=== PATIENT | male | born 1985 | race African-American/Black ===

== ENCOUNTER 2018-02-19 00:08 | Emergency (ER) | payer MEDICAID ==
[~2018-02-19] VITALS: Ht 180.3 cm; Wt 122.5 kg
[2018-02-19 00:16] VITALS: BP 112/99
[2018-02-19] MEDS ORDERED: ALBUTEROL SULF8.5 GM INH (00:37)
[2018-02-19] MEDS ORDERED: PREDNISONE20 MG ORAL (00:37)
--- NOTE | 2018-02-19 00:37 | Emergency Room Report ---
History of Present Illness General Chief Complaint: Upper Respiratory Illness Source: Patient Present Illness HPI Is a 32-year-old male with no past medical history. He presents with chief complaint of cough and congestion. Onset for last 2 days. 2 days ago he had a fever and chills. Since then he has congestion and coughing. Coughing is occasionally productive for sputum. Worse with inspiration. Worse with lying flat. Better sitting up in no nausea no vomiting. No longer having fever chills. No history of asthma. Denies any other complaint. Said his coworkers are sick with similar complaints. Allergies: Coded Allergies: AMOXICILLIN (Verified Allergy, Unknown, 02/19/18) Patient History Past Medical History: see triage record, old chart reviewed Past Surgical History: none Pertinent Family History: none Social History: Denies: smoking Immunizations: other Reviewed Nursing Documentation: PMH: Agreed; PSxH: Agreed Nursing Documentation-PMH Past Medical History: No Stated History Review of Systems Eye: Denies: eye pain, blurred vision ENT: Reports: nose congestion; Denies: ear pain, throat swelling Respiratory: Reports: cough, shortness of breath, sputum Cardiovascular: Denies: chest pain, palpitations Gastrointestinal: Denies: abdominal pain, diarrhea, nausea, vomiting Musculoskeletal: Denies: back pain, joint pain Skin: Denies: rash Neurological: Denies: headache, numbness Endocrine: Denies: increased thirst, increased urine Hematologic/Lymphatic: Denies: easy bruising All Other Systems: negative except mentioned in HPI Physical Exam Vital Signs Date Time Temp Pulse Resp B/P (MAP) Pulse Ox O2 Delivery O2 Flow Rate FiO2 02/19/18 00:12 97.7 99 18 112/99 99 Room Air vitals normal Sp02 EP Interpretation: reviewed, normal General Appearance: well appearing, no apparent distress, alert Head: normocephalic, atraumatic Eyes: bilateral eye PERRL, bilateral eye EOMI ENT: hearing grossly normal, normal pharynx Neck: full range of motion, supple, no meningismus Respiratory: chest non-tender, lungs clear, normal breath sounds, other - Coughing with inspiration Cardiovascular #1: regular rate, rhythm, no murmur Gastrointestinal: normal bowel sounds, non tender, no mass, no organomegaly, no bruit, non-distended Musculoskeletal: back normal, gait/station normal, normal range of motion Psychiatric: mood/affect normal Skin: warm/dry Medical Decision Making Diagnostic Impression: Primary Impression: Upper respiratory infection Qualified Codes: J06.9 - Acute upper respiratory infection, unspecified ER Course Patient with an upper rest or infection with bronchospasm. No evidence of pneumonia, sepsis, ACS, PE to name a few. We will discharge home with symptomatic treatment. No need for antibiotics. Last Vital Signs Date Time Temp Pulse Resp B/P (MAP) Pulse Ox O2 Delivery O2 Flow Rate FiO2 02/19/18 00:12 97.7 99 18 112/99 99 Room Air Status: unchanged Disposition: HOME, SELF-CARE Condition: Stable Scripts Prednisone* (PREDNISONE*) 20 Mg Tablet 40 MG ORAL DAILY, #10 TAB Prov: Toni Kent MD 02/19/18 Albuterol Sulfate* (ALBUTEROL SULFATE MDI*) 8.5 Gm Hfa.aer.ad 2 PUFF INH Q4H PRN for cough/wheezing, #1 EA 0 Refills Prov: Toni Kent MD 02/19/18 Additional Instructions: Follow-up with your DrDheeraj in 7 days. Return if symptom worsen. Toni Kent MD Feb 19, 2018 00:37
[2018-02-19 00:44] VITALS: BP 115/94
[2018-02-19 00:45] VITALS: BP 112/99
== END 2018-02-19 00:41 | disposition home or self-care (01) ==
LOC: EMR 00:35
DX: J06.9 Acute upper respiratory infection, unspecified (principal); Z88.0 Allergy status to penicillin
CPT/HCPCS: 99283